=== PATIENT | male | born 1980 | race Caucasian/White ===

== ENCOUNTER 2024-05-13 12:35 | Outpatient (CLI) | payer BC, SELFPAY | END 2024-05-13 12:36 | disposition home or self-care (01) | LOC: WOUND 12:35 | PROVIDERS: PCP Family Medicine; Visit Provider Nurse Practitioner Family | DX: I87.312 Chronic venous hypertension (idiopathic) with ulcer of left lower extremity (principal); L97.822 Non-pressure chronic ulcer of other part of left lower leg with fat layer exposed; L98.8 Other specified disorders of the skin and subcutaneous tissue; B35.3 Tinea pedis; R73.03 Prediabetes; E66.01 Morbid (severe) obesity due to excess calories; Z68.43 Body mass index [BMI] 50.0-59.9, adult | CPT/HCPCS: 11042; 97597; G0463 ==

== ENCOUNTER 2024-05-27 13:32 | Outpatient (CLI) | payer BC, SELFPAY | END 2024-05-27 13:33 | disposition home or self-care (01) | LOC: WOUND 13:32 | PROVIDERS: PCP Family Medicine; Visit Provider Family Medicine | DX: I87.312 Chronic venous hypertension (idiopathic) with ulcer of left lower extremity (principal); L97.822 Non-pressure chronic ulcer of other part of left lower leg with fat layer exposed; L98.8 Other specified disorders of the skin and subcutaneous tissue; B35.3 Tinea pedis | CPT/HCPCS: 11042 ==

== ENCOUNTER 2024-06-01 09:36 | Outpatient (CLI) | payer BC, SELFPAY | END 2024-06-01 09:37 | disposition home or self-care (01) | LOC: WOUND 09:36 | PROVIDERS: PCP Family Medicine; Visit Provider Nurse Practitioner Family | DX: I87.312 Chronic venous hypertension (idiopathic) with ulcer of left lower extremity (principal); L97.822 Non-pressure chronic ulcer of other part of left lower leg with fat layer exposed; R73.03 Prediabetes | CPT/HCPCS: 11042 ==

== ENCOUNTER 2024-06-10 11:10 | Outpatient (CLI) | payer BC, SELFPAY | END 2024-06-10 11:11 | disposition home or self-care (01) | LOC: WOUND 11:10 | PROVIDERS: PCP Family Medicine; Visit Provider Nurse Practitioner Family | DX: I87.312 Chronic venous hypertension (idiopathic) with ulcer of left lower extremity (principal); L97.822 Non-pressure chronic ulcer of other part of left lower leg with fat layer exposed | CPT/HCPCS: 97597 ==

== ENCOUNTER 2024-06-15 08:51 | Outpatient (CLI) | payer BC, SELFPAY | END 2024-06-15 08:52 | disposition home or self-care (01) | LOC: WOUND 08:51 | PROVIDERS: PCP Family Medicine; Visit Provider Nurse Practitioner Family | DX: I87.312 Chronic venous hypertension (idiopathic) with ulcer of left lower extremity (principal); L97.822 Non-pressure chronic ulcer of other part of left lower leg with fat layer exposed; R73.03 Prediabetes | CPT/HCPCS: 97597 ==

== ENCOUNTER 2024-06-24 12:39 | Outpatient (CLI) | payer BC, SELFPAY | END 2024-06-24 12:40 | disposition home or self-care (01) | LOC: WOUND 12:39 | PROVIDERS: PCP Family Medicine; Visit Provider Surgery | DX: I87.312 Chronic venous hypertension (idiopathic) with ulcer of left lower extremity (principal); L97.822 Non-pressure chronic ulcer of other part of left lower leg with fat layer exposed; R73.03 Prediabetes | CPT/HCPCS: G0463 ==

== ENCOUNTER 2024-06-29 08:51 | Outpatient (CLI) | payer BC, SELFPAY | END 2024-06-29 08:52 | disposition home or self-care (01) | LOC: WOUND 08:51 | PROVIDERS: PCP Family Medicine; Visit Provider Nurse Practitioner Family | DX: I87.312 Chronic venous hypertension (idiopathic) with ulcer of left lower extremity (principal); L97.822 Non-pressure chronic ulcer of other part of left lower leg with fat layer exposed | CPT/HCPCS: 11042; 87070; 87186 ==

== ENCOUNTER 2024-07-13 08:49 | Outpatient (CLI) | payer BC, SELFPAY | END 2024-07-13 08:50 | disposition home or self-care (01) | LOC: WOUND 08:49 | PROVIDERS: PCP Family Medicine; Visit Provider Nurse Practitioner Family | DX: I87.312 Chronic venous hypertension (idiopathic) with ulcer of left lower extremity (principal); L97.822 Non-pressure chronic ulcer of other part of left lower leg with fat layer exposed; R73.03 Prediabetes | CPT/HCPCS: 97597 ==

== ENCOUNTER 2024-07-22 08:54 | Outpatient (CLI) | payer BC, SELFPAY | END 2024-07-22 08:55 | disposition home or self-care (01) | LOC: WOUND 08:54 | PROVIDERS: PCP Family Medicine; Visit Provider Family Medicine | DX: I87.312 Chronic venous hypertension (idiopathic) with ulcer of left lower extremity (principal); L97.822 Non-pressure chronic ulcer of other part of left lower leg with fat layer exposed; R73.03 Prediabetes | CPT/HCPCS: 97597 ==

== ENCOUNTER 2024-08-05 12:44 | Outpatient (CLI) | payer BC, SELFPAY | END 2024-08-05 12:45 | disposition home or self-care (01) | LOC: WOUND 12:45 | PROVIDERS: PCP Family Medicine; Visit Provider Nurse Practitioner Family | DX: I87.312 Chronic venous hypertension (idiopathic) with ulcer of left lower extremity (principal); L97.822 Non-pressure chronic ulcer of other part of left lower leg with fat layer exposed; R73.03 Prediabetes | CPT/HCPCS: G0463 ==

== ENCOUNTER 2024-08-10 08:48 | Outpatient (CLI) | payer BC, SELFPAY | END 2024-08-10 08:49 | disposition home or self-care (01) | LOC: WOUND 08:48 | PROVIDERS: PCP Family Medicine; Visit Provider Nurse Practitioner Family | DX: I87.312 Chronic venous hypertension (idiopathic) with ulcer of left lower extremity (principal); L97.821 Non-pressure chronic ulcer of other part of left lower leg limited to breakdown of skin; R73.03 Prediabetes | CPT/HCPCS: G0463 ==

== ENCOUNTER 2024-08-24 08:45 | Outpatient (CLI) | payer BC, SELFPAY | END 2024-08-24 08:46 | disposition home or self-care (01) | LOC: WOUND 08:45 | PROVIDERS: PCP Family Medicine; Visit Provider Family Medicine | DX: I87.302 Chronic venous hypertension (idiopathic) without complications of left lower extremity (principal); R73.03 Prediabetes; B35.3 Tinea pedis | CPT/HCPCS: 99213; G0463 ==